=== PATIENT | male | born 1980 ===

== ENCOUNTER 2017-07-22 23:10 | Emergency (ER) | payer SELFPAY ==
[~2017-07-22] VITALS: Ht 185.4 cm; Wt 66.8 kg
[2017-07-22 23:18] VITALS: TEMP 98.5
[2017-07-23 00:18] LABS: PH 6 (5-8); SQUAMOUS EPITHELIAL None Seen /hpf; URINE APPEARANCE Clear; URINE BACTERIA None Seen /hpf; URINE BILIRUBIN Negative (NEGATIVE); URINE BLOOD 1+ (NEGATIVE); URINE COLOR Straw; URINE GLUCOSE Negative (NEGATIVE); URINE KETONE Negative (NEGATIVE); URINE RBC 0-2 /hpf; URINE UROBILINOGEN Negative (NEGATIVE); URINE WBC 0-2 /hpf
[2017-07-23 00:44] VITALS: BP 120/76; PULSE 90
== END 2017-07-23 00:45 | disposition home or self-care (01) ==
LOC: COL.ER 23:10
PROVIDERS: Nurse Practitioner
DX: E86.9 Volume depletion, unspecified (principal); R74.8 Abnormal levels of other serum enzymes; R74.0 Nonspecific elevation of levels of transaminase and lactic acid dehydrogenase [LDH]; Z98.890 Other specified postprocedural states
CPT/HCPCS: J1885; J2360

== ENCOUNTER 2018-01-14 02:33 | Emergency (ER) | payer SELFPAY ==
[~2018-01-14] VITALS: Ht 177.8 cm; Wt 68.2 kg
[2018-01-14 02:58] VITALS: TEMP 96.9
[2018-01-14 03:06] LABS: BASO # 0.1 (0.0-0.2); BASO % 0.7 % (0.0-2.0); EOS # 0.1 (0.0-0.7); GRAN # 4.4 (1.4-6.5); GRAN % 61.6 % (42.2-75.2); HEMATOCRIT 39.6 % (42.0-52.0); HEMOGLOBIN 13.5 g/dl (13.5-18.0); LYMPH # 1.7 (1.2-3.4); LYMPH % 23.9 % (20.0-51.0); MEAN CELL VOLUME 98 fl (80.0-100.0); MEAN CORPUSCULAR HEMOGLOBIN 33 pg (27.0-31.0); MEAN CORPUSCULAR HGB CONC 34 g/dl (33.0-37.0); MEAN PLATELET VOLUME 9.6 fl (7.4-10.4); MONO # 0.8 (0.1-0.6); MONO % 11.5 % (1.7-9.3); PLATELET COUNT 184 K/mm3 (130-400); RED BLOOD COUNT 4.06 M/mm3 (4.20-5.60); REDCELL DISTRIBUTION WIDTH-CV 12.5 % (11.5-14.5)
[2018-01-14 03:18] LABS: ALBUMIN 4.4 gm/dL (3.5-5.0); BILIRUBIN,TOTAL 0.5 mg/dL (0.0-1.0); CALCIUM 9.2 mg/dL (8.4-10.2); CREATININE, serum 1.03 mg/dL (0.66-1.25); POTASSIUM 3.4 mmol/L (3.4-5.0); TOTAL PROTEIN 6.7 gm/dL (6.4-8.2)
[2018-01-14 03:43] LABS: TRICYCLIC ANTIDEPRESS URINE NEGATIVE
[2018-01-14 08:16] VITALS: BP 143/98; PULSE 97
== END 2018-01-14 08:18 | disposition home or self-care (01) ==
LOC: COL.ER 02:33
PROVIDERS: Emergency Medicine
DX: S09.90XA Unspecified injury of head, initial encounter (principal); F10.129 Alcohol abuse with intoxication, unspecified; Y90.8 Blood alcohol level of 240 mg/100 ml or more; Z23 Encounter for immunization; Y04.0XXA Assault by unarmed brawl or fight, initial encounter
CPT/HCPCS: J2765; J3411; J3475; J7030

== ENCOUNTER 2018-03-12 22:57 | Emergency (ER) | payer SELFPAY ==
[~2018-03-12] VITALS: Ht 203.2 cm; Wt 75.0 kg
[2018-03-12 23:47] VITALS: TEMP 97.9
[2018-03-13 00:55] VITALS: BP 107/76; PULSE 80
== END 2018-03-13 01:00 | disposition home or self-care (01) ==
LOC: COL.ER 22:57
DX: M25.532 Pain in left wrist (principal); F17.220 Nicotine dependence, chewing tobacco, uncomplicated
CPT/HCPCS: J1885

== ENCOUNTER → 2018-03-12 | Outpatient (CLI) | payer SELFPAY ==
[2018-03-12 23:08] LABS: BASO # 0.1 (0.0-0.2); EOS # 0.2 (0.0-0.7); EOS % 4.4 % (0-4.0); GRAN # 2.4 (1.4-6.5); GRAN % 47.4 % (42.2-75.2); HEMOGLOBIN 13.1 g/dl (13.5-18.0); LYMPH # 1.5 (1.2-3.4); LYMPH % 30.5 % (20.0-51.0); MEAN CELL VOLUME 99 fl (80.0-100.0); MEAN CORPUSCULAR HEMOGLOBIN 33 pg (27.0-31.0); MEAN CORPUSCULAR HGB CONC 34 g/dl (33.0-37.0); MEAN PLATELET VOLUME 9.2 fl (7.4-10.4); MONO # 0.8 (0.1-0.6); MONO % 16.5 % (1.7-9.3); PLATELET COUNT 200 K/mm3 (130-400); RED BLOOD COUNT 3.93 M/mm3 (4.20-5.60); REDCELL DISTRIBUTION WIDTH-CV 13.4 % (11.5-14.5)
[2018-03-12 23:19] LABS: ERYTHROCYTE SEDIMENTATION RATE 1 mm/hr (0-15)
[2018-03-12 23:28] LABS: ALBUMIN 4.2 gm/dL (3.5-5.0); BILIRUBIN,TOTAL 0.1 mg/dL (0.0-1.0); CALCIUM 8.6 mg/dL (8.4-10.2); CREATININE, serum 0.83 mg/dL (0.66-1.25); POTASSIUM 4.2 mmol/L (3.4-5.0); TOTAL PROTEIN 7.3 gm/dL (6.4-8.2); URIC ACID 5.5 mg/dL (3.5-8.5)
== END ==
LOC: COL.RAD 22:10
PROVIDERS: Registered Nurse
DX: M79.89 Other specified soft tissue disorders (principal)